=== PATIENT | female | born 1950 | race Caucasian/White ===

== ENCOUNTER 2021-04-07 14:56 | Outpatient (REF) | payer MEDICARE, SELFPAY ==
[2021-04-07 15:16] LABS: Abs Immature Grans 0.07 10^3/uL (0.0-0.06); Absolute Basophil Count 0.06 10^3/uL (0.0-0.2); Absolute Eosinophil Count 0.15 10^3/uL (0.0-0.7); Absolute Lymphocyte Count 0.89 10^3/uL (1.2-3.4); Absolute Monocyte Count 0.87 10^3/uL (0.1-0.8); Absolute Neutrophil Count 6.11 10^3/uL (1.2-6.7); Basophils % 0.7; Eosinophils % 1.8; HCT 39.2 % (36.0-46.0); HGB 12.7 g/dL (11.2-15.7); Immature Grans % 0.9; Lymphocytes % 10.9; MCHC 32.4 % (32.0-36.0); MCV 89.5 fL (80-95); MPV 10.2 fL (8.0-11.0); Monocytes % 10.7; Nucleated RBC 0 %; Platelet Count 458 10^3/uL (130-400); RBC 4.38 10^6/uL (3.93-5.22); RDW 14.4 % (11.7-14.6); RDW-SD 47.3 fL; WBC 8.15 10^3/uL (4.4-10.8)
[2021-04-07 15:27] LABS: Iron 76 ug/dL (50-170)
[2021-04-07 15:39] LABS: Anion Gap 5.7 mmol/L (3-11); BUN 16 mg/dL (7-18); CO2 34.3 mmol/L (21.0-32.0); CREATININE 0.5 mg/dL (0.55-1.02); Chloride 96 mmol/L (98-107); Ferritin 632 ng/mL (8-252); Glucose 79 mg/dL (74-106); Potassium 3.5 mmol/L (3.5-5.1); Sodium 136 mmol/L (136-145)
[2021-04-07 15:47] LABS: Calcium 9.7 mg/dL (8.5-10.1)
== END 2021-04-07 14:57 | disposition home or self-care (01) ==
LOC: LBN 14:56
PROVIDERS: Family Medicine; PCP Family Medicine; Visit Provider Nurse Practitioner Family
DX: R79.89 Other specified abnormal findings of blood chemistry (principal); S72.142D Displaced intertrochanteric fracture of left femur, subsequent encounter for closed fracture with routine healing
CPT/HCPCS: 80048; 82728; 83540; 85025